=== PATIENT | female | born 1965 | race Two or more races ===

== ENCOUNTER 2021-02-20 08:21 | Outpatient (REF) | payer MEDICARE, MEDICAID, SELFPAY ==
--- NOTE | ~2021-02-20 | XR_ITS ---
EXAMINATION: XR CERVICAL SPINE CLINICAL INFORMATION: Postfusion COMPARISON: None TECHNIQUE: 6 views of the cervical spine including bilateral oblique and swimmer's view were obtained. FINDINGS: Bone alignment is normal. No fracture or dislocation is seen. There is anterior fusion hardware at the C6-C7. Orthopedic hardware appears intact. There does not appear to be complete bony ankylosis at the C6-C7 disc space level. There is mild degenerative spondylosis at C4-C5 and C5-C6. There is mild disc space narrowing at C5-C6. Right-sided neural foramen are patent. Evaluation of left-sided neural foramina is limited due to patient positioning. Prevertebral soft tissues are normal. XR/XR cervical spine 4V IMPRESSION: Postsurgical change following anterior fusion at C6-C7. Mild degenerative changes at C4-C5 and C5-C6.
== END 2021-02-20 08:22 | disposition home or self-care (01) ==
LOC: HO.XRAY 08:21
PROVIDERS: PCP Internal Medicine; Visit Provider Neurological Surgery
DX: Z98.1 Arthrodesis status (principal)
CPT/HCPCS: 72050